=== PATIENT | female | born 1965 | race Caucasian/White ===

== ENCOUNTER 2024-04-13 16:16 | Emergency (ER) | payer OTHER ==
[2024-04-13 16:48] VITALS: BP 148/80; PULSE 70; RESP 18; TEMP 98.6; BMI 45.0
== END 2024-04-13 19:15 | disposition home or self-care (01) ==
LOC: FER 16:16
DX: M79.601 Pain in right arm (principal); M25.511 Pain in right shoulder
CPT/HCPCS: 73030-TC-RT-FY; 73060-TC-RT-FY; 99283-25